=== PATIENT | male | born 1950 | race Caucasian/White ===

== ENCOUNTER 2022-12-22 15:00 | Outpatient (RCR) | payer MEDICARE, SELFPAY ==
--- NOTE | 2022-11-07 15:20 | PTOPEVAL1 ---
Assessment and note entered by Pauly Ferguson, PT Evaluation Information Assessment Status Evaluation Diagnosis Pain in left hip Onset couple weeks Subjective Information Pt states will have hot, and poker type pain in outside of left hip. Usually worse at night. States will also go numb. Reported Pain Level Pain Score 2: Self Report Assessment PT Clinical Summary Pt presents w/ c/o left leg pain and N/T that is intermittent and variable in intensity and time. Evaluation today shows increased tone and tenderness L ITB, piriformis, and glute med as compared to right, possible leg length discrepancy with L inominate flare. Pt demos mild decreased flexibility in piriformis and hip flexors, decreased strength lumbopelvic core musculature all causing discomfort. Pt would benefit from physical therapy to address deficits and improve pain thus returning pt to PLOF. Plan of Care Interventions Electrical Stimulation,Hot Pack/Cold Pack,Manual Therapy,Neuro Re-education,Patient/Caregiver Educati,Therapeutic Activities,Therapeutic Exercise,Ultrasound PT Services Indicated Yes Treatment Frequency and 1-2x/wk x 6 weeks Duration These treatments will address the objective and functional deficits as defined above. The patient will be advanced safely and appropriately in order for the patient to progress towards his/her prior level of function. Additional exercises will be introduced and as well as a comprehensive home exercise program upon discharge, if needed, ?to ensure carryover of functional gains achieved in the clinic. This treatment plan has been reviewed and agreement upon by the patient.
--- NOTE | 2022-12-22 15:50 | PTOPDC ---
Assessment and note entered by Pauly Ferguson, PT Assessment Status Discharge Diagnosis Pain in left hip Onset couple weeks Subjective Information Pt reports still has sharp pains sometimes in evening or at night but only 2x in the last week where as used to have 2-3 episodes a night. Reports very little numbness. Reports feeling 80% iproved. Reported Pain Level Pain Score 0: Self Report Assessment PT Clinical Summary Pt reports feeling 80% improved overall. States numbness in left leg is mostly gone, only has a few instances of sharp pains occasionally versus multiple times a night. Pt jg's understanding of home exercises and continuing improvement with activity. Pt jg's improvement in hip ROM, flexibility, and strength. Even though he did not meet therapy derived goals, he is happy with his progress and he appears to be able to continue his program independently successfully. Thus patient is being discharged at this time for completion of therapy.
== END 2022-12-23 13:20 | disposition home or self-care (01) ==
LOC: ANHHIPT 15:00
PROVIDERS: PCP Family Medicine; Visit Provider Family Medicine
DX: M25.552 Pain in left hip (principal); G57.10 Meralgia paresthetica, unspecified lower limb
CPT/HCPCS: 97014; 97110; 97140; 97161; G0283

== ENCOUNTER 2025-08-01 08:00 | Outpatient (RCR) | payer MEDICARE, SELFPAY ==
--- NOTE | 2025-05-22 17:07 | PTOPEVAL1 ---
Assessment and note entered by Pauly Ferguson, PT Evaluation Information Assessment Status Evaluation Diagnosis left shoulder pain ICD-10 Condition Codes (PT) Pain in left shoulder M25.512 Onset chronic progressive Subjective Information Left shoulder pain has slowly worsened for years. Had done complete reconstruction bicep torn loose, six or seven ligaments torn loose including the rotator cuff in 2004. 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 Sleeping at night sleeps on one side or the other until it hurts too bad and rolls over. If sleeping on left side, will Left arm will be tucked under the chin, and arm and fingers will be tingly and numb, unable to move arm. Can always move fingers but has to use RUE to move it around and work it loose. Standing and handing LUE increases discomfort, support improves discomfort. Stretching and shaving hide in [place] Holding LUE on steering wheel Anything strenuous above head. can't touch hands behind him, has to modify putting belt through loops on pants Can do heavy loads to waist height but not higher Reported Pain Level Pain Score 1: Self Report Assessment PT Clinical Summary Pt presents with complaints of pain in left shoulder. He has a history of severe damage and reconstruction of the left shoulder many years ago including but not limited to rotator cuff repair, biceps repair, and possible labral involvement. He reports greatest discomfort with sleeping on left side and with reaching overhead. Pt has multiple areas of significant deficits with evaluation including severe decreased active and passive ROM with restriction suggestive of adhesive capsulitis. He also shows multiple special test suggestive of anatomical damage including labrum, and subscapularis. He also demonstrates global weakness of the shoulder musculature. Pt will benefit from physical therapy to address these deficits, increase ROM and strength, and improve overall pain and function. Plan of Care Interventions Electrical Stimulation,Hot Pack/Cold Pack,Manual Therapy,Neuro Re-education,Patient/Caregiver Education,Therapeutic Activities,Therapeutic Exercise,Self-Care/Home Management,Other Other Interventions Taping PT Services Indicated Yes Treatment Frequency and 1-2x weekly x 20 visits Duration These treatments will address the objective and functional deficits as defined above. The patient will be advanced safely and appropriately in order for the patient to progress towards his/her prior level of function. Additional exercises will be introduced and as well as a comprehensive home exercise program upon discharge, if needed, ?to ensure carryover of functional gains achieved in the clinic. This treatment plan has been reviewed and agreement upon by the patient.
--- NOTE | 2025-05-22 17:08 | OPREHPOC ---
Outpatient Therapy Plan of Care This is a Multidisciplinary Plan of Care that may contain components documented by all disciplines (PT, OT, and ST.) PT Goal 1 Goal / Goal Update Pt will be independent in HEP Pt will verbalize understanding of diagnosis and prognosis Target Visit 10 PT Problem 2 PT Problem #2 Pain PT Goal 1 Goal / Goal Update Pt will report worst pain at 3/10 or less Target Visit 10 PT Goal 2 Goal / Goal Update Pt will report ability to lift items overhead without pain Target Visit 20 PT Problem 3 PT Problem #3 Impaired Range of Motion PT Goal 1 Goal / Goal Update Pt will demonstrate passive ROM increase in flexion, abduction, and external rotation of 10 degrees or more Target Visit 10 PT Goal 2 Goal / Goal Update Pt will demonstrate shoulder flexion active ROM of 130 or greater with appropriate scapular kinematics Target Visit 20 PT Problem 4 PT Problem #4 Impaired Strength PT Goal 1 Goal / Goal Update Pt will demonstrate strength of 4/5 or greater in all tested planes LUE Target Visit 20
--- NOTE | 2025-06-22 11:42 | OPREHPOC ---
Outpatient Therapy Plan of Care This is a Multidisciplinary Plan of Care that may contain components documented by all disciplines (PT, OT, and ST.) PT Goal 1 Goal / Goal Update Pt will be independent in HEP Pt will verbalize understanding of diagnosis and prognosis Target Visit 10 Progress Met PT Problem 2 PT Problem #2 Pain PT Goal 1 Goal / Goal Update Pt will report worst pain at 3/10 or less Target Visit 10 Progress Not Met PT Goal 2 Goal / Goal Update Pt will report ability to lift items overhead without pain Target Visit 20 Progress Not Met PT Problem 3 PT Problem #3 Impaired Range of Motion PT Goal 1 Goal / Goal Update Pt will demonstrate passive ROM increase in flexion, abduction, and external rotation of 10 degrees or more - met for external rotation, abduction Target Visit 10 Progress Partially Met PT Goal 2 Goal / Goal Update Pt will demonstrate shoulder flexion active ROM of 130 or greater with appropriate scapular kinematics Target Visit 20 PT Problem 4 PT Problem #4 Impaired Strength PT Goal 1 Goal / Goal Update Pt will demonstrate strength of 4/5 or greater in all tested planes LUE Target Visit 20 Progress Partially Met
--- NOTE | 2025-06-22 11:42 | PTOPPROG ---
Assessment and note entered by Pauly Ferguson, PT Evaluation Information Assessment Status Progress Diagnosis left shoulder pain ICD-10 Condition Codes (PT) Pain in left shoulder M25.512 Onset chronic progressive Subjective Information Maybe a little improvement at night but nothing definitive, may not be waking up as many times. Still waking up wiht tingling and numbness in arm LUE on steering wheel is still an issue Has not made much progress, can't say I feel any different. Will only let Dr. Marc do work on his shoulder States hanging arms at side is was really kills me Is able to reach up and put a light bulb in but extended periods can't do that due to pain and weakness Assessment PT Clinical Summary Pt has attended therapy consistently for left shoulder pain. Reports he doesn't feel much improvement since starting therapy regarding pain and function. He shows some increases in range, strength, and some of the originally (+) special tests show improvement. Discussed with patient options for continued therapy with aggressive ROM and strengthening versus moving toward imaging and outside referrals. Pt agreeable to aggressive stretching and strengthening plan. Will benefit from continued therapy to attempt further increases prior to referral to outside sources. Plan of Care Interventions Electrical Stimulation,Hot Pack/Cold Pack,Manual Therapy,Neuro Re-education,Patient/Caregiver Education,Therapeutic Activities,Therapeutic Exercise,Self-Care/Home Management,Other Other Interventions Taping PT Services Indicated Yes Treatment Frequency and 2x weekly x 10 visits Duration These treatments will address the objective and functional deficits as defined above. The patient will be advanced safely and appropriately in order for the patient to progress towards his/her prior level of function. Additional exercises will be introduced and as well as a comprehensive home exercise program upon discharge, if needed, ?to ensure carryover of functional gains achieved in the clinic. This treatment plan has been reviewed and agreement upon by the patient.
--- NOTE | 2025-08-01 08:57 | PTOPDC ---
Assessment and note entered by Pauly Ferguson, PT Evaluation Information Assessment Status Discharge Diagnosis left shoulder pain ICD-10 Condition Codes (PT) Pain in left shoulder M25.512 Onset chronic progressive Subjective Information Pt reports increased pain with hanging drywall. Overhead is the worst. Letting arm hand at side still hurts. Sleeping at night on that shoulder still hurts. Arm doesn't go tingly and numb every night but did last night. Feels like has more motion and can go farther. Pain huffman, still painful when gets to the end- range. Maybe a little easier time doing normal activities . Looping the belt in the back might be a little easier Reports had trouble with frozen shoulder both times had surgery on both shoulders Reported Pain Level Pain Score 3: Self Report Assessment PT Clinical Summary Pt has attended therapy consistently for left shoulder pain for 15 visits. He has a history of extensive surgery with left shoulder and reports history of frozen shoulder with both shoulders as well. Unfortunately while patient has made some progress with strength and range, he has not met his goals for motion or pain. He continues to present as highly inflamed in the sub acromial structures likely related to impingement from frozen shoulder. He has been advised to continue his stretches, and that therapy is suggesting referral out to orthopedic consultation hopefully for a steroid injection to reduce inflammation and allow patient to continue stretching independently. Thus patient is being discharged from therapy services for max benefit being met. Plan of Care PT Services Indicated No
== END 2025-08-01 09:02 | disposition home or self-care (01) ==
LOC: ANHHIPT 08:00
PROVIDERS: PCP Physician Assistant Medical; Visit Provider Physician Assistant Medical
DX: M25.512 Pain in left shoulder (principal)
CPT/HCPCS: 97014; 97110; 97140; 97162; 97750; G0283